=== PATIENT | male | born 1935 | race Caucasian/White ===

== ENCOUNTER 2017-06-23 10:27 | Inpatient (IN) | payer MEDICARE ==
[~2017-06-23] VITALS: Ht 182.9 cm; Wt 88.0 kg
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
[2017-06-23 15:00] VITALS: BP 113/71
[2017-06-23] MEDS ORDERED: ACETAMINOPHEN 325 MG TABLET/CAPLET (TYLENOL) PO PRN (15:45)
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
[2017-06-23] MEDS: FAMOTIDINE 20 MG (PEPCID) TABLET PO SCH (19:25)
[2017-06-23] MEDS: LEVETIRACETAM 500 MG (KEPPRA) TAB PO SCH (21:20)
[2017-06-23] MEDS: POLYETHYLENE GLYCOL 17 GM (MIRALAX) PACK PO SCH (21:21)
[2017-06-23 22:21] VITALS: BP 135/80
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
[2017-06-24 05:00] VITALS: BP 129/73
[2017-06-24] MEDS: LEVETIRACETAM 500 MG (KEPPRA) TAB PO SCH ×2 (08:34→20:06)
[2017-06-24] MEDS: FAMOTIDINE 20 MG (PEPCID) TABLET PO SCH (08:34)
[2017-06-24] MEDS: TIMOLOL MALEATE 0.25% (TIMOPTIC) 5 ML DROPS OD SCH (08:34)
[2017-06-24] MEDS: LORATADINE (CLARITIN) 10 MG TAB PO SCH (08:34)
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
[2017-06-24] MEDS ORDERED: RANI150T15 PO (09:28)
[2017-06-24] MEDS ORDERED: IBUP100T46 PO (09:28)
[2017-06-24] MEDS ORDERED: LORA10TA7 PO (09:28)
[2017-06-24] MEDS ORDERED: POLY17PO6 PO (09:28)
[2017-06-24] MEDS ORDERED: ONDA4TAB10 PO (09:28)
[2017-06-24] MEDS ORDERED: GUAI600T43 PO (09:28)
[2017-06-24] MEDS ORDERED: TIMOLOL 0.25% OD (09:32)
--- NOTE | 2017-06-24 09:46 | PM&R Post Admission Assessment ---
Post Admission Physician Asses The preadmission screen agrees with the post admission assessment that the patient is a good candidate for inpatient rehabilitation. The patient will have a comprehensive program of inpatient rehabilitation with a goal of maximizing level of functional independence prior to discharge home with [facility]. The patient will have PT/OT ninety minutes per day, each discipline , five days a week for gait, strengthening, conditioning, balance, ADLs, any patient/family/caregiver training as necessary. Speech therapy to do cognitive assessment and treat as indicated 3 to 5 days a week for 30-45 minutes per day for 2 weeks. Rehabilitation nursing to assist with bowel, bladder, skin, wound care, medication administration, pain management. Tin Flopper to assist with discharge planning, community reentry. SCD's for DVT prophylaxis. He appears to be well motivated to participate in three hours of therapy a day. He should be able to tolerate three hours of therapy a day from a medical and surgical standpoint. He should benefit from the three hours of therapy a day. He has a reasonable discharge plan, reasonable discharge rehabilitation goals and a supportive family. He has various comorbidities that need to be closely monitored with medications and treatments adjusted on a daily basis as needed. These include: Prostae CA GERD Seizure prophylaxis Barriers to discharge for this patient who had been independent prior to this are for him to be modified independent to supervision for ADLs and mobility skills prior to discharge home with [facility] and family, so as to lessen the burden of the caregivers. Risks for this patient include: 1. Fall 2. Fracture 3. DVT 4. Pulmonary embolism 5. Wound infection 6. Skin breakdown 7. Contractures 8. Poorly controlled pain 9. Urinary retention 10. UTI 11. Respiratory infection 12. Aspiration 13 Seizure Estimated Length of Stay: 10 days Prognosis: Rehab prognosis appears good for goal of discharge home with [facility] and family modified independent to supervision for ADLs and mobility skills. RAFAL BLACKMAN MD Jun 24, 2017 09:46
--- NOTE | 2017-06-24 09:56 | PM & R (SOAP) Progress Note ---
Subjective Time Seen by Provider: 08:00 Subjective/Events-last exam Patient was seen in his room this AM Adjusting well to unit Discussed case with DR Romero Appreciate Therapy notes ST note pending.Patient SBA for transfers Review of Systems Neurological: Incoordination Objective Exam Last Set of Vital Signs Vital Signs Date Time Temp Pulse Resp B/P (MAP) Pulse Ox O2 Delivery O2 Flow Rate FiO2 06/24/17 05:00 99.3 63 18 129/73 94 Room Air Capillary Refill : I&O Intake and Output 06/25/17 00:00 Intake Total 100 ml Balance 100 ml Intake Oral 100 ml # Voids 3 # Bowel Movements 1 General: Alert, Oriented X3, Cooperative, No Acute Distress, Other (crani site healing well) HEENT: PERRLA, EOMI, Mucous Memb Moist/[place]: Supple, No JVD Lungs: Clear to Auscultation Heart: Regular Rate Abdomen: Normal Bowel Sounds, Soft, No Tenderness Extremities: No Edema Neuro: Other (Strength 4/5 both lower extremities Functional strength Both upper limbs) Psych/Mental Status: Other (some impulsivity) Assessment/Plan Assessment TBI s/p crani for SDH left OSH Gerd on meds Prostate CA awaiting RT Spinal surgery in the past Plan Continue PT/OT Awaiting ST assessment Check Labs RAFAL BLACKMAN MD Jun 24, 2017 09:56
--- NOTE | 2017-06-24 10:38 | ST Cognitive Linguistic Eval ---
Speech Evaluation-General Medical Diagnosis Subdural Hematoma Onset Date: Jun 15, 2017 Therapy Diagnosis Therapy Diagnosis: Cognitive Linguistic Function Grossly WNL Precautions Precautions/Isolations: Fall Prevention, Standard Precautions Referral Referring Physician: Dr. Samy Martinez Reason for Referral: Evaluation/Treatment Cognitive Evaluation Medical History Glaucoma, Prostate CA Current History Per patient, he became dizzy while completing "some yard work" and "fell a couple of times." The patient stated he was unaware he had experienced a subdural hematoma until it was discussed at the hospital. Following the identification of the subdural hematoma, the patient underwent a left craniotomy on 06/15/2017. Reviewed History: Yes Social History Current Living Status: Alone Speech PLF-Current Status Prior Level of Function The patient denied prior challenges with speech, language, or cognition. Per patient, "I've always talked a little funny, like I'm from [place] or something." Subjective The patient was seated upright in a recliner upon entrance. The patient greeted the clinician appropriately and was agreeable to participation in the cognitive treatment session. The patient was pleasant and cooperative throughout the session, however, continued to state he desires a "short stay" and was "ready to go home before he got here." Language Eval: Auditory Comprehends Simple Yes/No Ques: Functional Indent/Objects Multiple [place]: Functional Ident/Pics in Multiple Sexton: Functional Follows 1-Step Commands: Functional Follows Complex Directions: Functional Follows General Conversations: Functional Language Eval: Verbal Language Completes Spontaneous Greeting: Functional Produces Auto, Serial Info: Functional Imitates Simple Words/Phrases: Functional Word Finding: Mild (The patient displayed age appropriate word-finding pauses, however, effectively communicated through the session.) Requests Basic Needs: Functional States Basic Personal Info: Functional Expresses Complex Ideas: Functional Cognitive Patient Orientation The patient was independently oriented to self, location, month, day of week, and year. Objective Cognitive Domain Attention: Mild (The patient requires intermittent redirection to task, as he does display poor topic maintenance.) Memory: WNL Problem Solving: Mild (The patient displays and communicates impulsivity, however, it does not appear this is secondary to the patient's recent procedure/ injury. Per patient, he "knows" he needs to ask for help but "I just don't feel it is necessary. I am a busy man, when I need something, I need it.") Objective Impression The patient displays cognitive linguistic skills grossly within normal limits and age appropriate for completion of ADL's. If the patient's impulsivity increases or interferes with therapy progression, consider speech pathology re- evaluation. Communication/Social Cognition Comprehension: 5 Expression: 5 Social Interaction: 6 Problem Solvin Memory: 4 Speech Patient Assess Expression of Ideas/Wants: Expression (4) Understanding Vebal Content: Usually Understands (3) Brief Interview-Mental Status: Yes Repetition of Three Words: Three (3) Temporal Orientation: Year: Correct (3) Temporal Orientation: Month: Accurate within 5 days(2) Temporal Orientation: Day: Correct (1) Recall : Wear to say "Sock": Yes, no cue required (2) Recall : Color: Yes, no cue required (2) Recall : Bed: Yes, no cue required (2) Speech-Plan Treatment Plan Speech Therapy Treatment Plan: Discontinue ST Evaluation, only. Frequency: Modified Program (IRF) (Evaluation, only.) Estimated Hrs Per Day: Other (Evaluation, only.) Rehab Potential: Good Safety Risks/Education Teaching Recipient: Patient Teaching Methods: Discussion Response to Teaching: Verbalize Understanding Education Topics Provided: Results, Recommendations, Plan of Care Time Speech Therapy Time In: 09:15 Speech Therapy Time Out: 09:45 Total Billed Time: 30 Billed Treatment Time 1, ISAAC STOLL Jun 24, 2017 10:38
--- NOTE | 2017-06-24 11:55 | Occupational Ther Daily Note ---
OT Current Status-Daily Note Subjective Pt in bed, agrees to treatment. Pt states he feels fine and "there is nothing wrong with me." Pt has no c/o pain during session. Mental Status/Objective Functional [place] Measure 0=Not Assessed/NA 4=Minimal Assistance 1=Total Assistance 5=Supervision or Setup 2=Maximal Assistance 6=Modified [place] 3=Moderate Assistance 7=Complete [place] ADL-Treatment Pt supine to sit with supervision. Pt donned jeans with supervision for balance and safety. Pt has difficulty starting socks over toes. Pt requires assist to start socks, but is then able to complete task. Pt donned bilateral Velcro shoes with set up. Sit to stand and transfer to chair with supervision and cues for safety. Pt's meal tray arrived. Pt able to open packages, cut food, and feed self with modified independence. Gait to restroom without AD, CGA for balance. Pt demonstrated ability to perform toilet transfer with SBA using grab bars. Pt washed face and combed hair with SBA while standing at sink. Pt gets off topic easily and requires cues to attend to task. Skilled cues required for safety during treatment. Pt sitting in chair with needs met and chair alarm in place after session. Functional [place] Measure 0=Not Assessed/NA 4=Minimal Assistance 1=Total Assistance 5=Supervision or Setup 2=Maximal Assistance 6=Modified [place] 3=Moderate Assistance 7=Complete IndependenceIRFPAI Quality Coding Scale 6 Independent with activity with or without an assistive device 5 Patient requires set up or clean up by helper. Patient completes activity by themselves 4 Supervision or touching assist (CGA). [place] provide cues , steadying assist 3 The helper provides less than half the effort to complete the activity 2 The helper provides more than half the effort to complete the activity 1 Dependent. The helper does all the effort to complete an activity 7 Patient refused to complete or attempt activity 9 The patient did not perform the activity before the current illness or injury 88 Not attempted due to Medical conditions or safety concerns Eating (FIM): 6 Eating (QC): 6 Grooming (FIM): 5 Lower Body Dressing (FIM): 4 Lower Body Dressing (QC): 3 On/Off Footwear (QC): 3 Toilet/Commode Transfer (FIM): 5 Toilet Transfer (QC): 4 Education OT Patient Education: Safety issues Teaching Recipient: Patient Teaching Methods: Discussion Response to Teaching: Reinforcement Needed OT Short Term Goals Short Term Goals Transfers (B,C,W/C) (FIM): 6 1=Demonstrate adherence to instructed precautions during ADL tasks. 2=Patient will verbalize/demonstrate understanding of assistive devices/ modifications for ADL. 3=Patient will improve strength/tolerance for activity to enable patient to perform ADL's. OT Correction Goals Correction Goals Time Frame: Jul 07, 2017 Eating (FIM): 6 Eating (QC): 6 Groomin Oral Hygiene (QC): 6 Bathing(FIM): 5 Shower/Bathe Self (QC): 5 Upper Body Dressing(FIM): 6 Upper Body Dressing (QC): 6 Lower Body Dressing(FIM): 6 Lower Body Dressing (QC): 6 On/Off Footwear (QC): 6 Toileting(FIM): 6 Toileting Hygiene (QC): 6 Transfers (B,C,W/C) (FIM): 6 Toilet/Commode Transfer(FIM): 6 Toilet/Commode Transfer (QC): 6 Shower Transfer(FIM): 5 Additional Goals: 1-Demonstrate ADL Tasks, 2-Verbalize Understanding, 3- ImproveStrength/Ed 1=Demonstrate adherence to instructed precautions during ADL tasks. 2=Patient will verbalize/demonstrate understanding of assistive devices/ modifications for ADL. 3=Patient will improve strength/tolerance for activity to enable patient to perform ADL's. OT Education/Plan Discharge Recommendations Plan/Recommendations: Continue POC Treatment Plan/Plan of Care Patient would benefit from OT for education, treatment and training to promote independence in ADL's, mobility, safety and/or upper extremity function for ADL' s. Plan of Care: ADL Retraining, Caregiver Training, Cognitive Retraining, Functional Mobility, Group Exercise/Act as Ind, UE Funct Exercise/Act Treatment Duration: Jul 07, 2017 Frequency: At least 5 of 7 days/Wk (IRF) Estimated Hrs Per Day: 1.5 hours per day Agreement: Yes Rehab Potential: Good Time/GCodes Start Time: 08:00 Stop Time: 09:00 Total Time Billed (hr/min): 60 Billed Treatment Time 1 visit, ADLx4(60minutes) JEOVANY BLANKENSHIP OT Jun 24, 2017 11:55
--- NOTE | 2017-06-24 11:55 | Physical Therapy Daily Note ---
PT Daily Note-Current Subjective Pt. agrees to rx. Getting anxious to get up and move around. Cant really put recent history in order. Insists his balance and function are ok Pain Numeric Pain Scale: 0-No Pain Mental Status Patient Orientation: Person, Time, Situation (partial understanding) needs reminded of place and recent history Transfers Functional [place] Measure 0=Not Assessed/NA 4=Minimal Assistance 1=Total Assistance 5=Supervision or Setup 2=Maximal Assistance 6=Modified [place] 3=Moderate Assistance 7=Complete IndependenceIRFPAI Quality Coding Scale 6 Independent with activity with or without an assistive device 5 Patient requires set up or clean up by helper. Patient completes activity by themselves 4 Supervision or touching assist (CGA). Guy provide cues , steadying assist 3 The helper provides less than half the effort to complete the activity 2 The helper provides more than half the effort to complete the activity 1 Dependent. The helper does all the effort to complete an activity 7 Patient refused to complete or attempt activity 9 The patient did not perform the activity before the current illness or injury 88 Not attempted due to Medical conditions or safety concerns Transfers (B, C, W/C) (FIM): 5 Scootin Rollin Roll Left to Right (QC): 6 Supine to/from Sit: 5 TRFd on off floor SBA Weight Bearing Right Lower Extremity: Right Full Weight Bearing Left Lower Extremity: Left Full Weight Bearing Gait Training Does the Patient Walk?: Yes Gait (FIM): 4 Distance (FIM): 3=150 ft (250x2) Gait Level of Assist: 4 Gait Persons Needed: 1 Gait Assistive Device: None (pt. refuses use of AD) right foot drags, scoots along floor without cues, walks with fast velocity, declines use of AD, grades out in REYNAGA for FWW Stair Training Stair Training: Handrails/: 2 handrails Neuromuscular REYNAGA completed at38/56 Assessment Current Status: Good Progress LOB with side step, 360 degrees turns and alt steps on stairs in stand one place PT Short Term Goals Short Term Goals Time Frame: Jun 27, 2017 Transfers (B,C,W/C) (FIM): 6 Gait (FIM): 5 PT Assembler Rubber Footwear Goals Assembler Rubber Footwear Goals PT Assembler Rubber Footwear Goals Time Frame: Jul 04, 2017 Transfers (B,C,W/C) (FIM): 7 Sit to Lying (QC): 6 Lying-Sitting on Side/Bed(QC): 7 Sit to Stand (QC): 6 Roll Left to Right (QC): 6 Chair/Vme-ez-Rikye Xfer(QC): 6 Car Transfer (QC): 6 Does the Patient Walk: Yes Gait (FIM): 7 Gait distance (FIM): 3=150 ft Walk 10 feet (QC): 6 Walk 10ft-Uneven Surface(QC): 6 Walk 50ft with 2 Turns (QC): 6 Walk 150 ft (QC): 6 Gait Assistive Device: None Does the Pt use WC or Scooter?: No Stairs (FIM): 6 # of Steps: 12 1 Step (curb) (QC): 6 4 Steps (QC): 6 12 Steps (QC): 6 Picking up an Object (QC): 5 PT Plan Treatment/Plan Treatment Plan: Continue Plan of Care Treatment Plan: Bed Mobility, Education, Functional Activity Ed, Functional Strength, Group Therapy, Gait, Safety, Therapeutic Exercise, Transfers Treatment Duration: Jul 04, 2017 Frequency: At least 5 of 7 days/Wk (IRF) Estimated Hrs Per Day: 1.5 hours per day Patient and/or Family Agrees t: Yes Safety Risks/Education Patient Education: Gait Training, Transfer Techniques, Correct Positioning, Safety Issues Teaching Recipient: Patient Teaching Methods: Demonstration, Discussion Response to Teaching: Verbalize Understanding, Return Demonstration, Reinforcement Needed reviewed safety and balance precautions multiple times. pt. forgets and comments in same way Time/GCodes Time In: 1100 Time Out: 1200 Total Billed Treatment Time: 60 Total Billed Treatment 1,NM30m,FA15m,GT15 G Codes Necessary: KAYLIE [place] HAT CHECKER Jun 24, 2017 11:55
--- NOTE | 2017-06-24 12:12 | Individualized Plan of Care ---
Individualized Plan of Care Rehab Nursing IPOC Order Admission Date Jun 23, 2017 at 14:07 Current Orders Orders General/Regular (06/23/17 Dinner) Physical Therapy Oder (06/23/17 14:07) Occupational Therapy Order (06/23/17 14:07) Request Speech/Language Servic (06/23/17 14:07) Admission (Physician Order) (06/23/17 14:38) Code/Resuscitation (06/23/17 14:38) Initiate Admission Nursing Pro .admission (06/23/17 14:38) Isolation Central Supply Req (06/23/17 14:38) Admission Arrival Bed Request (06/23/17 14:38) Rehab Nursing Orders-Ipoc (06/23/17 14:38) Levetiracetam Tablet (Keppra Tablet) (06/23/17 21:00) Loratadine Tablet (Claritin Tablet) (06/24/17 09:00) Polyethylene Glycol Powder Pkt (Miralax (06/23/17 21:00) Pharmacy Communication (Pharmacy Communi (06/23/17 14:45) Timolol 0.25% Ophthalmic Soln (Timoptic (06/24/17 09:00) Staple/Suture Removal (06/30/17 09:00) Follow-Up Appointment (06/23/17 14:41) Weight Bearing Status (06/23/17 14:41) Acetaminophen Tablet/Caplet (Tylenol T (06/23/17 15:45) Famotidine Tablet (Pepcid Tablet) (06/23/17 16:00) Patient Visit (06/23/17 ) Pt Eval Low Complexity (06/23/17 ) Gait Training, Ea 15 Min (06/23/17 ) Functional Activities, Ea 15 (06/23/17 ) Ex Neuromuscular, Ea 15 Min (06/23/17 ) Consult Physician (06/23/17 16:33) Cbc With Automated Diff (06/25/17 06:00) Comprehensive Metabolic Panel (06/25/17 06:00) Patient Visit (06/24/17 ) Speech Sound Lang Comp (06/24/17 ) Rehab Nursing Orders: Bladder Program, Bladder Scan, Bladder Training, Bowel Program, Bowel Training, Diseage Management, Edu in Press Rel Techn, Hydration Management, Nutrition Management, Pain Management, Wound Management Other Nursing Orders: Monitor for any urinary retention with hx of TBI and prosate surgery and fo Intensity of Therapy to be met Patient to be seen: Min.3h per day/5 of 7d PT IPOC Problem List: Activity Tolerance, Functional Strength, Safety, Balance, Gait, Transfer Treatment Plan: Continue Plan of Care Bed Mobility, Education, Functional Activity Ed, Functional Strength, Group Therapy, Gait, Safety, Therapeutic Exercise, Transfers Treatment Duration: Jul 04, 2017 Frequency: At least 5 of 7 days/Wk (IRF) Estimated Hrs Per Day: 1.5 hours per day OT IPOC Problems: Decreased Activ Tolerance, Decreased Safety Aware, Dependent Transfers, Impaired Cognition, Impaired Funct Balance, Impaired I ADL's, Impaired Self-Care Skills OT Treatment, Training and Edu: Yes Plan of Care: ADL Retraining, Caregiver Training, Cognitive Retraining, Functional Mobility, Group Exercise/Act as Ind, UE Funct Exercise/Act Treatment Duration: Jul 07, 2017 Frequency: At least 5 of 7 days/Wk (IRF) Estimated Hrs Per Day: 1.[address] IPOC Speech Therapy Treatment Plan: Discontinue ST Treatment Duration: Jun 24, 2017 Frequency: Modified Program (IRF) (Evaluation, only.) Estimated Hrs Per Day: Other (Evaluation, only.) Starting Gate Driver/Case Mgmt Starting Gate Driver/Case Managemen: Discharge Planning, Patient/Family Counseling Physician IPOC Medical Issues being managed closely and that require the 24 hour availability of a physician: postop confusion clearing rapidly Prostate Ca to have RT Back pain s/p surgery remote GERD Seizure prophylaxis s/p Crani for SDH Medical Issues: Bowel/Bladder Function, DVT Prophylaxis, Falls Precautions, Fluid/Electrolyte/Nutrition Balance, Infection Protection, Pain Management, Wound Care, Other (List) (as per above) Brief Synthesis of Preadmission Screen, Post-Admission Evaluation, and Therapy Evaluations: 81 yo male s/p crani for SDH at OSH. Patient doesnt remember how he sustained injury Has some mild memory impairment and impulsivity.Lives alone and had been Independent Patients daughter concerned re patients return home alone ST has assessed patient today and felt patient baseline and signed off PMH Prostate CA awaiting RT Back surgery GERD Medical Prognosis: good Anticipated Length of Stay: 07-07-17 Rehab Goals Modifeid Independent to supervision for adls and mobility skills Anticipated discharge destinat: Jani with family and [facility] vs RAFAL BLEDSOE MD Jun 24, 2017 12:12
--- NOTE | 2017-06-24 14:50 | Occupational Ther Daily Note ---
OT Current Status-Daily Note Subjective Pt sitting in chair, agrees to treatment. No c/o pain. Mental Status/Objective Functional [place] Measure 0=Not Assessed/NA 4=Minimal Assistance 1=Total Assistance 5=Supervision or Setup 2=Maximal Assistance 6=Modified [place] 3=Moderate Assistance 7=Complete [place] ADL-Treatment Functional [place] Measure 0=Not Assessed/NA 4=Minimal Assistance 1=Total Assistance 5=Supervision or Setup 2=Maximal Assistance 6=Modified [place] 3=Moderate Assistance 7=Complete IndependenceIRFPAI Quality Coding Scale 6 Independent with activity with or without an assistive device 5 Patient requires set up or clean up by helper. Patient completes activity by themselves 4 Supervision or touching assist (CGA). [place] provide cues , steadying assist 3 The helper provides less than half the effort to complete the activity 2 The helper provides more than half the effort to complete the activity 1 Dependent. The helper does all the effort to complete an activity 7 Patient refused to complete or attempt activity 9 The patient did not perform the activity before the current illness or injury 88 Not attempted due to Medical conditions or safety concerns Other Treatment Pt sit to stand with supervision. Gait to therapy gym with min assist for balance. Pt's right foot drags, requires cues for foot clearance. Arm bike [id number] to increase overall strength and activity tolerance needed for ADLs and transfers. Pt completed task with moderate resistance and steady pace. No rest breaks taken. Pt completed fine motor task with nuts and bolts with bilateral UE with 2# weights in place to increase strength and coordination skills. Pt able to complete task without assistance. Pt returned to room with cues for safety during mobility. Pt sitting in chair with needs met and chair alarm on after session. Education OT Patient Education: Safety issues Teaching Recipient: Patient Teaching Methods: Discussion Response to Teaching: Reinforcement Needed OT Short Term Goals Short Term Goals Transfers (B,C,W/C) (FIM): 6 1=Demonstrate adherence to instructed precautions during ADL tasks. 2=Patient will verbalize/demonstrate understanding of assistive devices/ modifications for ADL. 3=Patient will improve strength/tolerance for activity to enable patient to perform ADL's. OT Towel Sorter Goals Long-Term Goals Time Frame: Jul 07, 2017 Eating (FIM): 6 Eating (QC): 6 Groomin Oral Hygiene (QC): 6 Bathing(FIM): 5 Shower/Bathe Self (QC): 5 Upper Body Dressing(FIM): 6 Upper Body Dressing (QC): 6 Lower Body Dressing(FIM): 6 Lower Body Dressing (QC): 6 On/Off Footwear (QC): 6 Toileting(FIM): 6 Toileting Hygiene (QC): 6 Transfers (B,C,W/C) (FIM): 6 Toilet/Commode Transfer(FIM): 6 Toilet/Commode Transfer (QC): 6 Shower Transfer(FIM): 5 Additional Goals: 1-Demonstrate ADL Tasks, 2-Verbalize Understanding, 3- ImproveStrength/Ed 1=Demonstrate adherence to instructed precautions during ADL tasks. 2=Patient will verbalize/demonstrate understanding of assistive devices/ modifications for ADL. 3=Patient will improve strength/tolerance for activity to enable patient to perform ADL's. OT Education/Plan Discharge Recommendations Plan/Recommendations: Continue POC Treatment Plan/Plan of Care Patient would benefit from OT for education, treatment and training to promote independence in ADL's, mobility, safety and/or upper extremity function for ADL' s. Plan of Care: ADL Retraining, Caregiver Training, Cognitive Retraining, Functional Mobility, Group Exercise/Act as Ind, UE Funct Exercise/Act Treatment Duration: Jul 07, 2017 Frequency: At least 5 of 7 days/Wk (IRF) Estimated Hrs Per Day: 1.5 hours per day Agreement: Yes Rehab Potential: Good Time/GCodes Start Time: 14:00 Stop Time: 14:30 Total Time Billed (hr/min): 30 Billed Treatment Time 1 visit, EXx2(30minutes) JEOVANY BLANKENSHIP OT Jun 24, 2017 14:50
--- NOTE | 2017-06-24 15:18 | Physical Therapy Daily Note ---
PT Daily Note-Current Subjective Pt. agrees to Rx. States again he cant remember why he got in the hospital for this incident. Pt. needs multiple reminders for safety and to slow down etc. Mental Status multiple reminders needed for all Transfers Functional [place] Measure 0=Not Assessed/NA 4=Minimal Assistance 1=Total Assistance 5=Supervision or Setup 2=Maximal Assistance 6=Modified [place] 3=Moderate Assistance 7=Complete IndependenceIRFPAI Quality Coding Scale 6 Independent with activity with or without an assistive device 5 Patient requires set up or clean up by helper. Patient completes activity by themselves 4 Supervision or touching assist (CGA). [place] provide cues , steadying assist 3 The helper provides less than half the effort to complete the activity 2 The helper provides more than half the effort to complete the activity 1 Dependent. The helper does all the effort to complete an activity 7 Patient refused to complete or attempt activity 9 The patient did not perform the activity before the current illness or injury 88 Not attempted due to Medical conditions or safety concerns SBA to Mod I Weight Bearing Right Lower Extremity: Right Full Weight Bearing Left Lower Extremity: Left Full Weight Bearing Gait Training Does the Patient Walk?: Yes refuses trial of AD. gait with fig 8s and obstacle course on carpet etc. 2 LOB episodes with min assist required for recovery. walks too fast with right foot dragging at times Exercises Standing: Hip Abduction, Hamstring curls, Heel/toe raises, Marching, Mini squats, Sit to Stand Standing Reps: 15 Assessment Current Status: Good Progress PT Short Term Goals Short Term Goals Time Frame: Jun 27, 2017 Transfers (B,C,W/C) (FIM): 6 Gait (FIM): 5 PT Snf Goals Snf Goals PT Loom Overhauler Goals Time Frame: Jul 04, 2017 Transfers (B,C,W/C) (FIM): 7 Sit to Lying (QC): 6 Lying-Sitting on Side/Bed(QC): 7 Sit to Stand (QC): 6 Rollin Roll Left to Right (QC): 6 Chair/Fla-gy-Ixryb Xfer(QC): 6 Car Transfer (QC): 6 Does the Patient Walk: Yes Gait (FIM): 7 Gait distance (FIM): 3=150 ft Walk 10 feet (QC): 6 Walk 10ft-Uneven Surface(QC): 6 Walk 50ft with 2 Turns (QC): 6 Walk 150 ft (QC): 6 Gait Assistive Device: None Does the Pt use WC or Scooter?: No Stairs (FIM): 6 # of Steps: 12 1 Step (curb) (QC): 6 4 Steps (QC): 6 12 Steps (QC): 6 Picking up an Object (QC): 5 PT Plan Treatment/Plan Treatment Plan: Continue Plan of Care Treatment Plan: Bed Mobility, Education, Functional Activity Ed, Functional Strength, Group Therapy, Gait, Safety, Therapeutic Exercise, Transfers Treatment Duration: Jul 04, 2017 Frequency: At least 5 of 7 days/Wk (IRF) Estimated Hrs Per Day: 1.5 hours per day Patient and/or Family Agrees t: Yes Safety Risks/Education Patient Education: Gait Training, Transfer Techniques, Correct Positioning, Safety Issues Teaching Recipient: Patient Teaching Methods: Demonstration, Discussion Response to Teaching: Verbalize Understanding, Return Demonstration, Reinforcement Needed Time/GCodes Time In: 1440 Time Out: 1510 Total Billed Treatment Time: 30 Total Billed Treatment 1,EX15m,GT15m G Codes Necessary: KAYLIE [place] FLARER Jun 24, 2017 15:18
[2017-06-24 17:59] VITALS: BP 154/80
[2017-06-24] MEDS: POLYETHYLENE GLYCOL 17 GM (MIRALAX) PACK PO SCH (20:07)
[2017-06-25 05:01] VITALS: BP 156/85
[2017-06-25 06:23] LABS: BASOPHILS % (AUTO) 0 % (0-10); EOSINOPHILS # (AUTO) 0.2 10^3/uL (0.0-0.3); EOSINOPHILS % (AUTO) 3 % (0-10); LYMPHOCYTES # (AUTO) 1.1 X 10^3 (1.0-4.0); LYMPHOCYTES % (AUTO) 17 % (12-44); MEAN CORPUSCULAR HEMOGLOBIN 31 PG (25-34); MEAN CORPUSCULAR HGB CONC 34 G/DL (32-36); MEAN CORPUSCULAR VOLUME 90 FL (80-99); MONOCYTES # (AUTO) 0.6 X 10^3 (0.0-1.0); MONOCYTES % (AUTO) 9 % (0-12); NEUTROPHILS # (AUTO) 4.5 X 10^3 (1.8-7.8); NEUTROPHILS % (AUTO) 71 % (42-75); PLATELET COUNT 270 10^3/uL (130-400); RED BLOOD COUNT 4.36 10^6/uL (4.35-5.85); RED CELL DISTRIBUTION WIDTH 12.8 % (10.0-14.5); WHITE BLOOD COUNT 6.4 10^3/uL (4.3-11.0)
[2017-06-25 06:45] LABS: ALANINE AMINOTRANSFERASE 48 U/L (0-55); ALBUMIN 3.6 GM/DL (3.2-4.5); ANION GAP 7 MMOL/L (5-14); ASPARTATE AMINO TRANSFERASE 34 U/L (5-34); BILIRUBIN,TOTAL 1.3 MG/DL (0.1-1.0); BLOOD UREA NITROGEN 15 MG/DL (7-18); BUN/CREATININE RATIO 16; CALCIUM 8.9 MG/DL (8.5-10.1); CARBON DIOXIDE 24 MMOL/L (21-32); CHLORIDE 106 MMOL/L (98-107); CREATININE SERUM 0.92 MG/DL (0.60-1.30); GFR ESTIMATED > 60; GLUCOSE 93 MG/DL (70-105); POTASSIUM 4.3 MMOL/L (3.6-5.0); SODIUM 137 MMOL/L (135-145)
[2017-06-25] MEDS: FAMOTIDINE 20 MG (PEPCID) TABLET PO SCH (08:14)
[2017-06-25] MEDS: LORATADINE (CLARITIN) 10 MG TAB PO SCH (08:14)
[2017-06-25] MEDS: LEVETIRACETAM 500 MG (KEPPRA) TAB PO SCH ×2 (08:14→20:08)
[2017-06-25] MEDS: TIMOLOL MALEATE 0.25% (TIMOPTIC) 5 ML DROPS OD SCH (09:00)
--- NOTE | 2017-06-25 09:42 | Physical Therapy Daily Note ---
PT Daily Note-Current Subjective Pt. up asking to move around. Cowboy boots on that he states he wears 6 days a week to dance Pain Numeric Pain Scale: 0-No Pain Mental Status likes to recite dates of different life events but unclear on recent time table of events regarding his illness etc Transfers Functional [place] Measure 0=Not Assessed/NA 4=Minimal Assistance 1=Total Assistance 5=Supervision or Setup 2=Maximal Assistance 6=Modified [place] 3=Moderate Assistance 7=Complete IndependenceIRFPAI Quality Coding Scale 6 Independent with activity with or without an assistive device 5 Patient requires set up or clean up by helper. Patient completes activity by themselves 4 Supervision or touching assist (CGA). [place] provide cues , steadying assist 3 The helper provides less than half the effort to complete the activity 2 The helper provides more than half the effort to complete the activity 1 Dependent. The helper does all the effort to complete an activity 7 Patient refused to complete or attempt activity 9 The patient did not perform the activity before the current illness or injury 88 Not attempted due to Medical conditions or safety concerns Transfers (B, C, W/C) (FIM): 6 Scootin Rollin Supine to/from Sit: 6 Sit to/from Stand: 6 Weight Bearing Right Lower Extremity: Right Full Weight Bearing Left Lower Extremity: Left Full Weight Bearing Gait Training Does the Patient Walk?: Yes Gait (FIM): 4 Distance (FIM): 3=150 ft (300x2) Gait Level of Assist: 4 Gait Persons Needed: 1 Gait Assistive Device: None pt. declines use of AD. pt. walks very close to obstacles on right running in to them occasionally. much work this date on obstacle courses and clearing right foot and side as he walks. pt. continues impulsive with poor awareness of safety Stair Training Stair Training: Handrails/: 2 handrails Stairs (FIM): 5 #of Steps: 12 Stairs: Pattern: Reciprocal Exercises NuStep Minutes: 12 NuStep Workload: 6 Assessment Current Status: Good Progress PT Short Term Goals Short Term Goals Time Frame: Jun 27, 2017 Transfers (B,C,W/C) (FIM): 6 Gait (FIM): 5 PT Advertising Statistical Clerk Goals Detention Goals PT Advertising Statistical Clerk Goals Time Frame: Jul 04, 2017 Transfers (B,C,W/C) (FIM): 7 Sit to Lying (QC): 6 Lying-Sitting on Side/Bed(QC): 7 Sit to Stand (QC): 6 Rollin Roll Left to Right (QC): 6 Chair/Ngc-kq-Laqso Xfer(QC): 6 Car Transfer (QC): 6 Does the Patient Walk: Yes Gait (FIM): 7 Gait distance (FIM): 3=150 ft Walk 10 feet (QC): 6 Walk 10ft-Uneven Surface(QC): 6 Walk 50ft with 2 Turns (QC): 6 Walk 150 ft (QC): 6 Gait Assistive Device: None Does the Pt use WC or Scooter?: No Stairs (FIM): 6 # of Steps: 12 1 Step (curb) (QC): 6 4 Steps (QC): 6 12 Steps (QC): 6 Picking up an Object (QC): 5 PT Plan Treatment/Plan Treatment Plan: Continue Plan of Care Treatment Plan: Bed Mobility, Education, Functional Activity Ed, Functional Strength, Group Therapy, Gait, Safety, Therapeutic Exercise, Transfers Treatment Duration: Jul 04, 2017 Frequency: At least 5 of 7 days/Wk (IRF) Estimated Hrs Per Day: 1.5 hours per day Patient and/or Family Agrees t: Yes Safety Risks/Education Patient Education: Gait Training, Transfer Techniques, Steps, Correct Positioning, Disease Process, Safety Issues Teaching Recipient: Patient Teaching Methods: Demonstration, Discussion Response to Teaching: Verbalize Understanding, Return Demonstration, Reinforcement Needed Time/GCodes Time In: 905 Time Out: 930 Total Billed Treatment Time: 25 Total Billed Treatment 1,EX12,GT13 G Codes Necessary: No KAYLIE SALAZAR MEMBERSHIP CORRESPONDENT Jun 25, 2017 09:42
[2017-06-25 18:00] VITALS: BP 143/86
[2017-06-25] MEDS: POLYETHYLENE GLYCOL 17 GM (MIRALAX) PACK PO SCH (20:08)
[2017-06-26 05:56] VITALS: BP 155/84
[2017-06-26] MEDS: LORATADINE (CLARITIN) 10 MG TAB PO SCH (08:40)
[2017-06-26] MEDS: FAMOTIDINE 20 MG (PEPCID) TABLET PO SCH (08:40)
[2017-06-26] MEDS: LEVETIRACETAM 500 MG (KEPPRA) TAB PO SCH ×2 (08:40→19:42)
[2017-06-26] MEDS: TIMOLOL MALEATE 0.25% (TIMOPTIC) 5 ML DROPS OD SCH (09:10)
[2017-06-26 18:56] VITALS: BP 151/91
[2017-06-26] MEDS: POLYETHYLENE GLYCOL 17 GM (MIRALAX) PACK PO SCH (19:36)
[2017-06-27 05:39] VITALS: BP 148/81
[2017-06-27] MEDS: TIMOLOL MALEATE 0.25% (TIMOPTIC) 5 ML DROPS OD SCH (08:29)
[2017-06-27] MEDS: FAMOTIDINE 20 MG (PEPCID) TABLET PO SCH (08:29)
[2017-06-27] MEDS: LEVETIRACETAM 500 MG (KEPPRA) TAB PO SCH ×2 (08:29→20:10)
[2017-06-27] MEDS: LORATADINE (CLARITIN) 10 MG TAB PO SCH (08:29)
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
--- NOTE | 2017-06-27 09:25 | Physical Therapy Daily Note ---
PT Daily Note-Current Subjective Pt. upset and wants to DC today. States he is so bored and wants to walk and be up. This COMMUNITY DIETITIAN tried to explain safety issues Pain Numeric Pain Scale: 0-No Pain Mental Status Patient Orientation: Person pt. insists he has a great memory but cant tell the name of this facility or current President etc. or especially safety issues that have been taught all along Transfers Functional [place] Measure 0=Not Assessed/NA 4=Minimal Assistance 1=Total Assistance 5=Supervision or Setup 2=Maximal Assistance 6=Modified [place] 3=Moderate Assistance 7=Complete IndependenceIRFPAI Quality Coding Scale 6 Independent with activity with or without an assistive device 5 Patient requires set up or clean up by helper. Patient completes activity by themselves 4 Supervision or touching assist (CGA). [place] provide cues , steadying assist 3 The helper provides less than half the effort to complete the activity 2 The helper provides more than half the effort to complete the activity 1 Dependent. The helper does all the effort to complete an activity 7 Patient refused to complete or attempt activity 9 The patient did not perform the activity before the current illness or injury 88 Not attempted due to Medical conditions or safety concerns Transfers (B, C, W/C) (FIM): 6 Scootin Rollin Roll Left to Right (QC): 6 Supine to/from Sit: 6 Sit to/from Stand: 6 Sit to Lying (QC): 6 Sit to Stand (QC): 6 Weight Bearing Right Lower Extremity: Right Full Weight Bearing Left Lower Extremity: Left Full Weight Bearing Gait Training Does the Patient Walk?: Yes Gait (FIM): 5 Distance (FIM): 3=150 ft ([id number]) Walk 10 feet (QC): 5 Walk 50 ft with 2 Turns(QC): 5 Walk 150 ft (QC): 5 Walking 10ft/uneven surface-QC: 5 Gait Level of Assist: 5 Gait Persons Needed: 1 Gait Assistive Device: None pt. declines use of AD. Pt. is impulsive and needs constant cues for safety, nursng very very busy trying to safeguard pt. Wheelchair Training Does the Pt Use a Wheelchair?: No Stair Training Stair Training: Handrails/: 1 handrail Stairs (FIM): 5 #of Steps: 12 1 Step (curb) (QC): 5 4 Steps (QC): 5 12 Steps (QC): 5 Stairs: Pattern: Reciprocal Level of Assist: 5 Exercises NuStep Minutes: 10 NuStep Workload: 7 Treatments obstacle course for figure 8s and reaching to p/u cones along the way, CGA no LOB Assessment Current Status: Good Progress unsafe, needs FT supervision PT Short Term Goals Short Term Goals Time Frame: Jun 27, 2017 Transfers (B,C,W/C) (FIM): 6 Gait (FIM): 5 PT Mail Order Biller Goals Mail Order Biller Goals PT Mail Order Biller Goals Time Frame: Jul 04, 2017 Transfers (B,C,W/C) (FIM): 7 Sit to Lying (QC): 6 Lying-Sitting on Side/Bed(QC): 7 Sit to Stand (QC): 6 Rollin Roll Left to Right (QC): 6 Chair/Wko-iq-Pkojk Xfer(QC): 6 Car Transfer (QC): 6 Does the Patient Walk: Yes Gait (FIM): 7 Gait distance (FIM): 3=150 ft Walk 10 feet (QC): 6 Walk 10ft-Uneven Surface(QC): 6 Walk 50ft with 2 Turns (QC): 6 Walk 150 ft (QC): 6 Gait Assistive Device: None Does the Pt use WC or Scooter?: No Stairs (FIM): 6 # of Steps: 12 1 Step (curb) (QC): 6 4 Steps (QC): 6 12 Steps (QC): 6 Picking up an Object (QC): 5 PT Plan Treatment/Plan Treatment Plan: Continue Plan of Care Treatment Plan: Bed Mobility, Education, Functional Activity Ed, Functional Strength, Group Therapy, Gait, Safety, Therapeutic Exercise, Transfers Treatment Duration: Jul 04, 2017 Frequency: At least 5 of 7 days/Wk (IRF) Estimated Hrs Per Day: 1.5 hours per day Patient and/or Family Agrees t: Yes Safety Risks/Education Patient Education: Gait Training, Transfer Techniques, Steps, Correct Positioning, Safety Issues Teaching Recipient: Patient Teaching Methods: Demonstration, Discussion Response to Teaching: Verbalize Understanding, Return Demonstration, Reinforcement Needed Time/GCodes Time In: 845 Time Out: 930 Total Billed Treatment Time: 45 Total Billed Treatment 1,FA30m,GT15m G Codes Necessary: No KAYLIE SALAZAR PTA Jun 27, 2017 09:25
--- NOTE | 2017-06-27 10:01 | Physical Therapy Daily Note ---
PT Daily Note-Current Transfers Functional [place] Measure 0=Not Assessed/NA 4=Minimal Assistance 1=Total Assistance 5=Supervision or Setup 2=Maximal Assistance 6=Modified [place] 3=Moderate Assistance 7=Complete IndependenceIRFPAI Quality Coding Scale 6 Independent with activity with or without an assistive device 5 Patient requires set up or clean up by helper. Patient completes activity by themselves 4 Supervision or touching assist (CGA). [place] provide cues , steadying assist 3 The helper provides less than half the effort to complete the activity 2 The helper provides more than half the effort to complete the activity 1 Dependent. The helper does all the effort to complete an activity 7 Patient refused to complete or attempt activity 9 The patient did not perform the activity before the current illness or injury 88 Not attempted due to Medical conditions or safety concerns Transfers (B, C, W/C) (FIM): 6 Scootin Rollin Roll Left to Right (QC): 6 Supine to/from Sit: 6 Sit to/from Stand: 6 Sit to Lying (QC): 6 Sit to Stand (QC): 6 Weight Bearing Right Lower Extremity: Right Full Weight Bearing Left Lower Extremity: Left Full Weight Bearing Gait Training Gait (FIM): 5 Distance: 400'x2 Walk 10 feet (QC): 4 Walk 50 ft with 2 Turns(QC): 4 Walk 150 ft (QC): 4 Walking 10ft/uneven surface-QC: 4 Gait Level of Assist: 5 Gait Persons Needed: 1 Gait Assistive Device: Cane Single Point Wheelchair Training Does the Pt Use a Wheelchair?: No Stair Training Stair Training: Handrails/: 2 handrails Stairs (FIM): 5 #of Steps: 12 1 Step (curb) (QC): 4 4 Steps (QC): 4 12 Steps (QC): 4 Stairs: Pattern: Step to PT Short Term Goals Short Term Goals Time Frame: Jun 27, 2017 Transfers (B,C,W/C) (FIM): 6 Gait (FIM): 5 PT Regulatory Affairs Specialist Goals Halfway Goals PT Regulatory Affairs Specialist Goals Time Frame: Jul 04, 2017 Transfers (B,C,W/C) (FIM): 7 Sit to Lying (QC): 6 (met) Lying-Sitting on Side/Bed(QC): 7 Sit to Stand (QC): 6 (met) Rollin (met) Roll Left to Right (QC): 6 (met) Chair/Dnr-fg-Rhawx Xfer(QC): 6 Car Transfer (QC): 6 Does the Patient Walk: Yes Gait (FIM): 7 Gait distance (FIM): 3=150 ft Walk 10 feet (QC): 6 Walk 10ft-Uneven Surface(QC): 6 Walk 50ft with 2 Turns (QC): 6 Walk 150 ft (QC): 6 Gait Assistive Device: None Does the Pt use WC or Scooter?: No Stairs (FIM): 6 # of Steps: 12 1 Step (curb) (QC): 6 4 Steps (QC): 6 12 Steps (QC): 6 Picking up an Object (QC): 5 PT Plan Treatment/Plan Treatment Plan: Bed Mobility, Education, Functional Activity Ed, Functional Strength, Group Therapy, Gait, Safety, Therapeutic Exercise, Transfers Treatment Duration: Jul 04, 2017 Frequency: At least 5 of 7 days/Wk (IRF) Estimated Hrs Per Day: 1.5 hours per day Patient and/or Family Agrees t: Yes NEDA MACKENZIE PT Jun 27, 2017 10:01
--- NOTE | 2017-06-27 11:52 | Occupational Ther Daily Note ---
OT Current Status-Daily Note Subjective Pt. is adamant that he is leaving today. States "there is no reason to be here. " Appearance Pt. is dressed and up in chair. With encouragement, does agree to work with OT. OT spoke with social media sr strategy manager whom has left message with pt's daughter. Mental Status/Objective Patient Orientation: Unable to Assess Functional [place] Measure 0=Not Assessed/NA 4=Minimal Assistance 1=Total Assistance 5=Supervision or Setup 2=Maximal Assistance 6=Modified [place] 3=Moderate Assistance 7=Complete [place] Pt. is somewhat impulsive and wants to prove that he is independent. Does not adhere to safety precautions. ADL-Treatment Functional [place] Measure 0=Not Assessed/NA 4=Minimal Assistance 1=Total Assistance 5=Supervision or Setup 2=Maximal Assistance 6=Modified [place] 3=Moderate Assistance 7=Complete IndependenceIRFPAI Quality Coding Scale 6 Independent with activity with or without an assistive device 5 Patient requires set up or clean up by helper. Patient completes activity by themselves 4 Supervision or touching assist (CGA). [place] provide cues , steadying assist 3 The helper provides less than half the effort to complete the activity 2 The helper provides more than half the effort to complete the activity 1 Dependent. The helper does all the effort to complete an activity 7 Patient refused to complete or attempt activity 9 The patient did not perform the activity before the current illness or injury 88 Not attempted due to Medical conditions or safety concerns Eating (FIM): 6 Eating (QC): 6 Grooming (FIM): 6 Oral Hygiene (QC): 6 Bathing (FIM): 6 (With safety concerns. Pt. is fully able to shower self with no equipment needs. However, declines sitting even with encouragement for safety.) Shower/Bathe Self (QC): 6 Upper Body (FIM): 6 Upper Body Dressing (QC): 6 Lower Body Dressing (FIM): 6 (With safety concerns. Pt. is adamant that he is standing to don pants.) Lower Body Dressing (QC): 6 On/Off Footwear (QC): 6 Toileting (FIM): 6 Toileting Hygiene (QC): 6 Transfers (B, C, W/C) (FIM): 6 (Pt. does not use equipment to walk. However, there are some safety concerns when pt. is ambulating. Pt. gets into a hurry.) Toilet/Commode Transfer (FIM): 6 Toilet Transfer (QC): 6 Shower Transfer(FIM): 6 Other Treatment After shower, pt. ambulated to therapy gym. Completed 10 minutes on armbike at mod resistance to increase overall strength and independence. Tolerated this well. Ambulated back to room. Education OT Patient Education: Correct positioning, Exercise program, Modified ADL techniques, Progress toward Goal/Update tx plan, Purpose of tx/functional activities, Reviewed precautions, Rehab process, Safety issues, Transfer techniques Teaching Recipient: Patient Teaching Methods: Demonstration, Discussion Response to Teaching: Verbalize Understanding, Return Demonstration OT Short Term Goals Short Term Goals Transfers (B,C,W/C) (FIM): 6 1=Demonstrate adherence to instructed precautions during ADL tasks. 2=Patient will verbalize/demonstrate understanding of assistive devices/ modifications for ADL. 3=Patient will improve strength/tolerance for activity to enable patient to perform ADL's. OT Long-Term Goals Long-Term Goals Time Frame: Jul 07, 2017 Eating (FIM): 6 Eating (QC): 6 Groomin Oral Hygiene (QC): 6 Bathing(FIM): 5 Shower/Bathe Self (QC): 5 Upper Body Dressing(FIM): 6 Upper Body Dressing (QC): 6 Lower Body Dressing(FIM): 6 Lower Body Dressing (QC): 6 On/Off Footwear (QC): 6 Toileting(FIM): 6 Toileting Hygiene (QC): 6 Transfers (B,C,W/C) (FIM): 6 Toilet/Commode Transfer(FIM): 6 Toilet/Commode Transfer (QC): 6 Shower Transfer(FIM): 5 Additional Goals: 1-Demonstrate ADL Tasks, 2-Verbalize Understanding, 3- ImproveStrength/Ed 1=Demonstrate adherence to instructed precautions during ADL tasks. 2=Patient will verbalize/demonstrate understanding of assistive devices/ modifications for ADL. 3=Patient will improve strength/tolerance for activity to enable patient to perform ADL's. OT Education/Plan Problem List/Assessment Assessment: Decreased Safety Aware Discharge Recommendations Plan/Recommendations: Continue POC Therapy D/C Recommendations: Home w/ Family Support Patient/Family Goals Pt. wants to go home as soon as he can. Treatment Plan/Plan of Care Treatment,Training & Education: Yes Patient would benefit from OT for education, treatment and training to promote independence in ADL's, mobility, safety and/or upper extremity function for ADL' s. Plan of Care: ADL Retraining, Caregiver Training, Cognitive Retraining, Functional Mobility, Group Exercise/Act as Ind, UE Funct Exercise/Act Treatment Duration: Jul 07, 2017 Frequency: At least 5 of 7 days/Wk (IRF) Estimated Hrs Per Day: 1.5 hours per day Agreement: Yes Rehab Potential: Good Time/GCodes Start Time: 10:30 Stop Time: 11:30 Total Time Billed (hr/min): 60 Billed Treatment Time 1, ADL x 45minutes, EX x 15minutes YAMINI SANZ OT Jun 27, 2017 11:52
--- NOTE | 2017-06-27 15:51 | Therapy Group Daily Note ---
Therapy Daily Group Note Patient Education Topic Home Safety, Fall Prevention, Exercises Exercises LE Seated Exercise, Balance, Sit to/from Stand, Stretching, UE Exercise Other/Notes Pt ambulated with SBA to [facility] area for OT/PT group. Group consisted of introductions (name, place living, most trouble in childhood), socialization, pt led UE/LE seated exercises, sit to stand during gross motor activity, home safety activity and ARU description. Pt was able to introduce self appropriately and contributed to peer conversations. Pt was able to sit to stand with CGA using FWW. Pt was able to complete dynamic standing while tossing/throwing with SBA. Pt was able to lead UE/LE seated exercises and complete. Pt able to verbalize the difference between safe and unsafe for home safety concerns. After therapy, pt sitting in recliner with call light/phone in reach. All needs met in room. Start Time: 13:00 Stop Time: 14:15 Total Billed Treatment Time: 75 Total Billed Treatment 1 visit GRP 75 min ADAM SULLIVAN PT Jun 27, 2017 15:51
[2017-06-27 18:52] VITALS: BP 154/72
--- NOTE | 2017-06-27 19:05 | PM & R (SOAP) Progress Note ---
Subjective Time Seen by Provider: 19:00 Subjective/Events-last exam Patient was seen in his room this evening Patient Modified Independent for adls and mobility skills- improving rapidly Objective Exam Last Set of Vital Signs Vital Signs Date Time Temp Pulse Resp B/P (MAP) Pulse Ox O2 Delivery O2 Flow Rate FiO2 06/27/17 18:52 64 16 154/72 99 Room Air 06/27/17 05:39 98.3 Capillary Refill : I&O Intake and Output 06/28/17 00:00 Intake Total 1550 ml Balance 1550 ml Intake Oral 1550 ml # Voids 9 # Bowel Movements 1 General: Alert, Oriented X3, Cooperative, No Acute Distress, Other (crani site healing well) HEENT: PERRLA, EOMI, Mucous Memb Moist/[place] Neck: Supple, No JVD Lungs: Clear to Auscultation Heart: Regular Rate Abdomen: Normal Bowel Sounds, Soft, No Tenderness Extremities: No Edema Neuro: Other (Strength 4/5 both lower extremities Functional strength Both upper limbs) Psych/Mental Status: Other (some impulsivity) Results Lab Laboratory Tests 06/25/17 06:09: White Blood Count 6.4, Red Blood Count 4.36, Hemoglobin 13.5, Hematocrit 39L, Mean Corpuscular Volume 90, Mean Corpuscular Hemoglobin 31, Mean Corpuscular Hemoglobin Concent 34, Red Cell Distribution Width 12.8, Platelet Count 270, Mean Platelet Volume 10.0, Neutrophils (%) (Auto) 71, Lymphocytes (%) (Auto) 17 , Monocytes (%) (Auto) 9, Eosinophils (%) (Auto) 3, Basophils (%) (Auto) 0, Neutrophils # (Auto) 4.5, Lymphocytes # (Auto) 1.1, Monocytes # (Auto) 0.6, Eosinophils # (Auto) 0.2, Basophils # (Auto) 0.0, Sodium Level 137, Potassium Level 4.3, Chloride Level 106, Carbon Dioxide Level 24, Anion Gap 7, Blood Urea Nitrogen 15, Creatinine 0.92, Estimat Glomerular Filtration Rate > 60, BUN/ Creatinine Ratio 16, Glucose Level 93, Calcium Level 8.9, Total Bilirubin 1.3H, Aspartate Amino Transf (AST/SGOT) 34, Alanine Aminotransferase (ALT/SGPT) 48, Alkaline Phosphatase 75, Total Protein 6.0L, Albumin 3.6 Assessment/Plan Assessment 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
[2017-06-27] MEDS: POLYETHYLENE GLYCOL 17 GM (MIRALAX) PACK PO SCH (19:39)
[2017-06-28 06:06] VITALS: BP 126/78
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
[2017-06-28] MEDS ORDERED: LEVE500T6 PO (07:52)
[2017-06-28] MEDS: TIMOLOL MALEATE 0.25% (TIMOPTIC) 5 ML DROPS OD SCH (08:20)
[2017-06-28] MEDS: FAMOTIDINE 20 MG (PEPCID) TABLET PO SCH (08:20)
[2017-06-28] MEDS: LORATADINE (CLARITIN) 10 MG TAB PO SCH (08:20)
[2017-06-28] MEDS: LEVETIRACETAM 500 MG (KEPPRA) TAB PO SCH (08:20)
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
--- NOTE | 2017-06-28 10:47 | Physical Therapy Daily Note ---
PT Daily Note-Current Subjective Pt sitting in recliner upon arrival. Pt asking when he will discharge as he has been told today. Pt feels he is ready to discharge and that Therapy is not helping. Pain Location: No Pain Reported Mental Status Patient Orientation: Person, Place Transfers Functional [place] Measure 0=Not Assessed/NA 4=Minimal Assistance 1=Total Assistance 5=Supervision or Setup 2=Maximal Assistance 6=Modified [place] 3=Moderate Assistance 7=Complete IndependenceIRFPAI Quality Coding Scale 6 Independent with activity with or without an assistive device 5 Patient requires set up or clean up by helper. Patient completes activity by themselves 4 Supervision or touching assist (CGA). [place] provide cues , steadying assist 3 The helper provides less than half the effort to complete the activity 2 The helper provides more than half the effort to complete the activity 1 Dependent. The helper does all the effort to complete an activity 7 Patient refused to complete or attempt activity 9 The patient did not perform the activity before the current illness or injury 88 Not attempted due to Medical conditions or safety concerns Weight Bearing Right Lower Extremity: Right Full Weight Bearing Left Lower Extremity: Left Full Weight Bearing Treatments Pt & PT discuss why pt is still in house and not discharged. Pt is given discharge papers and Nurse removes lucille from pt's head. Pt is resting at end of tx with all needs met and Nurse with pt. Assessment Current Status: Good Progress Pt is frustrated and would like to discharge because he feels that he is good to go home. PT Short Term Goals Short Term Goals Time Frame: Jun 27, 2017 Transfers (B,C,W/C) (FIM): 6 Gait (FIM): 5 PT Longterm Goals Longterm Goals PT Longterm Goals Time Frame: Jul 04, 2017 Transfers (B,C,W/C) (FIM): 7 Sit to Lying (QC): 6 (met) Lying-Sitting on Side/Bed(QC): 7 Sit to Stand (QC): 6 (met) Rollin (met) Roll Left to Right (QC): 6 (met) Chair/Jjg-ut-Awzqq Xfer(QC): 6 Car Transfer (QC): 6 Does the Patient Walk: Yes Gait (FIM): 7 Gait distance (FIM): 3=150 ft Walk 10 feet (QC): 6 Walk 10ft-Uneven Surface(QC): 6 Walk 50ft with 2 Turns (QC): 6 Walk 150 ft (QC): 6 Gait Assistive Device: None Does the Pt use WC or Scooter?: No Stairs (FIM): 6 # of Steps: 12 1 Step (curb) (QC): 6 4 Steps (QC): 6 12 Steps (QC): 6 Picking up an Object (QC): 5 PT Plan Problem List Problem List: Activity Tolerance, Safety Treatment/Plan Treatment Plan: Continue Plan of Care Treatment Plan: Bed Mobility, Education, Functional Activity Ed, Functional Strength, Group Therapy, Gait, Safety, Therapeutic Exercise, Transfers Treatment Duration: Jul 04, 2017 Frequency: At least 5 of 7 days/Wk (IRF) Estimated Hrs Per Day: 1.5 hours per day Patient and/or Family Agrees t: Yes Safety Risks/Education Patient Education: Disease Process, Safety Issues Teaching Recipient: Patient Teaching Methods: Discussion Response to Teaching: Reinforcement Needed Time/GCodes Time In: 905 Time Out: 920 Total Billed Treatment Time: 15 Total Billed Treatment visit, FA (15m) ANNABELLE ALMAZAN PTA Jun 28, 2017 10:47
--- NOTE | 2017-06-28 11:02 | Therapy Team Discharge Summary ---
Therapy Discharge Summary Discharge Recommendations Date of Discharge Therapy D/C Recommendations: Home w/ Family Support, Physical Therapy Outpatient Physical Therapy This patient has been seen on our unit following diagnosis of subdural hematoma. Upon admission, he was SBA with transfers, ambulated with CGA and went up and down steps with CGA. He did not use an assistive device and was very mobile; however he was unsteady on his feet at times and demonstrated decreased safety awareness. Treatment consisted of functional safety and mobility with education on safety and safety awareness. He was able to verbalize safety information but remains with unsafe choices at times and is impulsive. Pt is mod indep with transfers but remains at SBA for gait due to safety concerns. In general, pt does not need assist with mobility but feel he is at risk for falls due to impulsivity and decreased safety awareness. Pt very active and reports he dances 6 nights a week. Recommend he discharge home with supervision and have concerns about him returning to driving due to decreased safety awareness. At this time, pt is to discharge to his S.O.'s home and she plans to provide transportation. Goals met to a satisfactory level , SBA with gait and stairs due to decreased safety awareness, which may not improve. Discharge this date with recommended follow up outpatient PT. Occupational Therapy Decreased Safety Aware PT [facility] Goals [facility] Goals PT [facility] Goals Time Frame: Jul 04, 2017 Transfers (B,C,W/C) (FIM): 7 Roll Left to Right (QC): 6 (met) Sit to Lying (QC): 6 (met) Lying-Sitting on Side/Bed(QC): 7 (met) Sit to Stand (QC): 6 (met) Chair/Ash-ct-Hswgy Xfer(QC): 6 Car Transfer (QC): 6 Does the Patient Walk: Yes Gait (FIM): 7 (unmet; scored 5) Gait distance (FIM): 3=150 ft Walk 10 feet (QC): 6 (unmet, scored 5) Walk 10ft-Uneven Surface(QC): 6 (unmet scored 5) Walk 50ft with 2 Turns (QC): 6 (unmet, scored 5) Walk 150 ft (QC): 6 (unmet, scored 5) Gait Assistive Device: None Does the Pt use WC or Scooter?: No Stairs (FIM): 6 (unmet, scored 5) # of Steps: 12 1 Step (curb) (QC): 6 (unmet, scored 5) 4 Steps (QC): 6 (unmet, scored 5) 12 Steps (QC): 6 (unmet, scored 5) Picking up an Object (QC): 5 (met, per note picking up cones with CGA.) OT [facility] 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 2=Patient will verbalize/demonstrate understanding of assistive devices/ modifications for ADL. 3=Patient will improve strength/tolerance for activity to enable patient to perform ADL's. DAYAN FOSTER PT Jun 28, 2017 11:02
--- NOTE | 2017-06-28 11:18 | Occupational Ther Daily Note ---
OT Current Status-Daily Note Subjective No pain reported. Appearance Pt. up in chair. Dressed and holding discharge packet. Pt. begins to state that "no one has told me nothing about anything until right now." OT attempts to ask pt. what he means. Pt. states that there is a lot of information in packet about him, and that no one told him about it until just now. OT offers to go over any information that pt. has concerns about. Pt. states that "that other lady already did." Mental Status/Objective Functional [place] Measure 0=Not Assessed/NA 4=Minimal Assistance 1=Total Assistance 5=Supervision or Setup 2=Maximal Assistance 6=Modified [place] 3=Moderate Assistance 7=Complete [place] Memory(FIM): 4 (Pt. continually repeats self. Tells the same stories and reports he is upset that he didn't walk very much on Tuesday. Pt. is gently reminded that he was told that there would not be therapy on Tuesday. Pt. has been reminded of this multiple times.) ADL-Treatment Functional [place] Measure 0=Not Assessed/NA 4=Minimal Assistance 1=Total Assistance 5=Supervision or Setup 2=Maximal Assistance 6=Modified [place] 3=Moderate Assistance 7=Complete IndependenceIRFPAI Quality Coding Scale 6 Independent with activity with or without an assistive device 5 Patient requires set up or clean up by helper. Patient completes activity by themselves 4 Supervision or touching assist (CGA). [place] provide cues , steadying assist 3 The helper provides less than half the effort to complete the activity 2 The helper provides more than half the effort to complete the activity 1 Dependent. The helper does all the effort to complete an activity 7 Patient refused to complete or attempt activity 9 The patient did not perform the activity before the current illness or injury 88 Not attempted due to Medical conditions or safety concerns Other Treatment Pt. seems agitated at beginning of treatment. OT attempts to re-assure him that SW is trying to find him a ride home, and that we are trying to get a plan. Pt. does not seem to understand this. Brings up that he only walked one time on Tuesday. Upset that he was "just told" about the information in his discharge packet. States again that he walked a lot in the "other hospital." No matter what OT says, pt. does not seem to understand. OT offers to ambulate with pt. Pt. states, "why can't I just walk all over by myself?" OT explains safety to pt. Pt. seems to demonstrate poor memory and problem solving at times. Unsure if this was previous behavior, or new from the surgery. Pt. agrees to walk with OT. Ambulated around unit multiple times. Noted that pt. would start to veer toward right, and occassionally ran into items on right, causing OT to hold onto him at one point. Pt. continually states that this is because he was sitting too long. Pt. attempts to demonstrate side step dance move to OT and stumbles again. Pt. demonstrates safety risks. Poor awareness and impulsivity. Unsure if this will change or not. Pt. is going home today with family support. Pt. will not use walker for stability. Education OT Patient Education: Progress toward Goal/Update tx plan, Purpose of tx/ functional activities, Reviewed precautions, Rehab process, Safety issues, Transfer techniques Teaching Recipient: Patient Teaching Methods: Demonstration, Discussion Response to Teaching: Verbalize Understanding, Return Demonstration OT Short Term Goals Short Term Goals Transfers (B,C,W/C) (FIM): 6 1=Demonstrate adherence to instructed precautions during ADL tasks. 2=Patient will verbalize/demonstrate understanding of assistive devices/ modifications for ADL. 3=Patient will improve strength/tolerance for activity to enable patient to perform ADL's. 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 2=Patient will verbalize/demonstrate understanding of assistive devices/ modifications for ADL. 3=Patient will improve strength/tolerance for activity to enable patient to perform ADL's. OT Education/Plan Problem List/Assessment Assessment: Decreased Activ Tolerance, Decreased Safety Aware Discharge Recommendations Plan/Recommendations: Discontinue OT Therapy D/C Recommendations: Home w/ Family Support Treatment Plan/Plan of Care Treatment,Training & Education: Yes Plan of Care: ADL Retraining, Caregiver Training, Cognitive Retraining, Functional Mobility, Group Exercise/Act as Ind, UE Funct Exercise/Act Treatment Duration: Jul 07, 2017 Frequency: At least 5 of 7 days/Wk (IRF) Estimated Hrs Per Day: 1.5 hours per day Agreement: Yes Rehab Potential: Good Time/GCodes Start Time: 10:20 Stop Time: 11:00 Total Time Billed (hr/min): 40 Billed Treatment Time 1, FA x 3 YAMINI SANZ OT Jun 28, 2017 11:18
--- NOTE | 2017-06-28 11:24 | Therapy Team Discharge Summary ---
Therapy Discharge Summary Discharge Recommendations Date of Discharge Therapy D/C Recommendations: Home w/ Family Support Occupational Therapy Pt. has been seen by occupational therapy to increase overall strength and independence with daily tasks. Pt. met most goals of Mod I with safety concerns. Pt. is impulsive and demonstrates decreased problem solving at times. However, this may be baseline behavior. Pt. is to discharge home with family support. Recommend walker for safety. However, pt. will not use one. Recommend shower chair. However, pt. states he wont use it. Recommend 24 hour supervision in beginning of discharge home for safety. Decreased Activ Tolerance, Decreased Safety Aware PT Language Asst Goals Language Asst Goals PT Language Asst Goals Time Frame: Jul 04, 2017 Transfers (B,C,W/C) (FIM): 7 Roll Left to Right (QC): 6 (met) Sit to Lying (QC): 6 (met) Lying-Sitting on Side/Bed(QC): 7 (met) Sit to Stand (QC): 6 (met) Chair/Tvz-eu-Gvkmn Xfer(QC): 6 Car Transfer (QC): 6 Does the Patient Walk: Yes Gait (FIM): 7 (unmet; scored 5) Gait distance (FIM): 3=150 ft Walk 10 feet (QC): 6 (unmet, scored 5) Walk 10ft-Uneven Surface(QC): 6 (unmet scored 5) Walk 50ft with 2 Turns (QC): 6 (unmet, scored 5) Walk 150 ft (QC): 6 (unmet, scored 5) Gait Assistive Device: None Does the Pt use WC or Scooter?: No Stairs (FIM): 6 (unmet, scored 5) # of Steps: 12 1 Step (curb) (QC): 6 (unmet, scored 5) 4 Steps (QC): 6 (unmet, scored 5) 12 Steps (QC): 6 (unmet, scored 5) Picking up an Object (QC): 5 (met, per note picking up cones with CGA.) OT Language Asst Goals Language Asst Goals Time Frame: Jul 07, 2017 Eating (FIM): 6 (met) Eating (QC): 6 (met) Oral Hygiene (QC): 6 (met) Grooming(FIM): 6 (met) Bathing(FIM): 5 (met) Shower/Bathe Self (QC): 5 (met) Upper Body Dressing(FIM): 6 (met with safety concerns) Upper Body Dressing (QC): 6 (met with safety concerns) Lower Body Dressing(FIM): 6 (not met) Lower Body Dressing (QC): 6 (not met) On/Off Footwear (QC): 6 (not met) Toileting(FIM): 6 (met) Toileting Hygiene (QC): 6 (met) Transfers (B,C,W/C) (FIM): 6 (met with safety concerns) Toilet/Commode Transfer(FIM): 6 (met with safety concerns) Toilet/Commode Transfer (QC): 6 (met with safety concerns) Shower Transfer(FIM): 5 (met) Additional Goals: 1-Demonstrate ADL Tasks, 2-Verbalize Understanding, 3- ImproveStrength/Ed 1=Demonstrate adherence to instructed precautions during ADL tasks. 2=Patient will verbalize/demonstrate understanding of assistive devices/ modifications for ADL. 3=Patient will improve strength/tolerance for activity to enable patient to perform ADL's. YAMINI SANZ OT Jun 28, 2017 11:24
[2017-06-28 12:30] VITALS: BP 128/88
--- NOTE | 2017-07-01 07:22 | DISCHARGE SUMMARY ---
DATE OF SERVICE: HISTORY OF PRESENT ILLNESS: The patient is an 81-year-old male who lives alone in [facility], who had been independent and socially active, who was involved in an accident with a fall with resulting subdural hematoma. He was admitted to the [facility] and underwent a craniotomy and evacuation of left subdural hematoma. He was left with some residual impulsivity and gait imbalance and was referred to inpatient rehabilitation unit for comprehensive program of rehabilitation prior to discharge home. He does have a daughter, who is involved in his care, but she does not live in this area. PAST MEDICAL HISTORY: Prostate cancer and glaucoma, I believe he is in the process of receiving radiation therapy for his prostate cancer, GERD, back surgery and prostate surgery. MEDICAL COURSE: The patient was followed by Dr. Martinez and Dr. Romero while on rehab unit. His Timoptic eyedrops were continued, Keppra continued for seizure prophylaxis. He was normotensive and afebrile during his stay, respirations were 20 on 06/28, blood pressure 128/88, O2 sat 100% on room air, pulse 68. His craniotomy site was healing well. He had no evidence of seizures and cognitively and generally was progressing well. Some impulsivity was noted. Chemistry on 06/25 was within normal limits other than total bilirubin mildly elevated at 1.3. CBC within normal limits other than hematocrit mildly low at 39, hematocrit 13.5. WBC 6.4. REHABILITATION COURSE: He was assessed by speech therapy upon admission to rehab unit and found to be functional for his age. They signed off. PHYSICAL THERAPY NOTES UP ON ADMISSION: He was standby assist with transfers, can ambulate with contact guard, go up and down steps with contact guard. He did not use an assistive device, but he was unsteady on his feet. Upon discharge, he is modified independent with transfers, but remains a standby assist for gait due to safety concerns. He is being discharged to his significant other's home and she plans on providing transportation for followup outpatient PT. OCCUPATIONAL THERAPY NOTES: Upon admission, he was min assist for grooming, bathing, lower body dressing, setup for upper body dressing, min assist for shower transfers. Upon discharge, he remains somewhat impulsive and demonstrates decreased problem solving at times. He met most goals with modified independence with some issues due to safety concerns. It is recommended that he have 24-hour supervision initially upon discharge. His significant other/girlfriend will assist with this as mentioned above. DISCHARGE INSTRUCTIONS: He will have followup with his PCP and with his neurosurgeon and outpatient PT. Continue current diet. A 24-hour supervision initially recommended. DISCHARGE MEDICATIONS: 1. Keppra 500 mg p.o. b.i.d. 2. Mucinex 600 mg p.o. b.i.d. p.r.n. congestion. 3. Claritin 10 mg p.o. daily. 4. Zantac 150 mg p.o. daily. 5. Timoptic eyedrops 1 drop in right eye daily. DISCHARGE DIAGNOSES: 1. Rehabilitation, ambulatory dysfunction status post left craniotomy for evacuation of left subdural hematoma with residual gait imbalance and some impulsivity. 2. History of prostate cancer. 3. Seizure prophylaxis on Keppra b.i.d. 4. Gastroesophageal reflux disease, on Zantac. 5. Glaucoma, on eyedrops. 6. Mild hyperbilirubinemia. CONDITION AT DISCHARGE: Improved and stable. PROGNOSIS: Rehab prognosis appears good for some continued improvement and hopefully he will be able to return to independent living. He may eventually have to transition to a more formal assisted living setting. Job ID: [id number] DocumentID: [id number] Dictated Date: 06/30/2017 11:32:08 Leather Seasoner Date: 07/01/2017 04:22:31 Dictated By: RAFAL MARTINEZ MD
== END 2017-06-28 12:30 | disposition home health service (06) | DRG 950 ==
PROVIDERS: ADMIT Physical Medicine & Rehabilitation; ATTEND Physical Medicine & Rehabilitation
DX: S06.5X9D Traumatic subdural hemorrhage with loss of consciousness of unspecified duration, subsequent encounter (principal); R26.81 Unsteadiness on feet; R45.87 Impulsiveness; C61 Malignant neoplasm of prostate; K21.9 Gastro-esophageal reflux disease without esophagitis; F03.90 Unspecified dementia, unspecified severity, without behavioral disturbance, psychotic disturbance, mood disturbance, and anxiety; V89.2XXD Person injured in unspecified motor-vehicle accident, traffic, subsequent encounter; W19.XXXD Unspecified fall, subsequent encounter
CPT/HCPCS: 36415; 80053; 85025